=== PATIENT | female | born 1950 | race Caucasian/White ===

== ENCOUNTER 2024-11-07 11:07 | Outpatient (CLI) | payer MEDICARE ==
[~2024-11-07 11:07] MED LIST: Iopamidol 370 76% 100 ML VIAL ONE
== END 2024-11-07 11:08 | disposition home or self-care (01) ==
LOC: BICCT 11:07
PROVIDERS: ATTEND Family Medicine
DX: R10.31 Right lower quadrant pain (principal); K59.00 Constipation, unspecified; K76.89 Other specified diseases of liver
CPT/HCPCS: 36415; 74177; 82565; Q9967